=== PATIENT | male | born 1975 | race African-American/Black ===

== ENCOUNTER 2018-03-05 17:10 | Emergency (ER) | payer SELFPAY ==
[2018-03-05 17:24] VITALS: BP 147/90
[2018-03-05] MEDS ORDERED: FLUCONAZOLE 100 MG TABLET PO ONE (18:46)
--- NOTE | 2018-03-05 18:50 | ER Document Report ---
HPI - HPI Time Seen by Provider: 03/05/18 17:59 Pain Level: 5 Notes: Patient is a 42-year-old male who presents with sore throat times 2 months. Patient reports that he has had a history of having a yeast infection in his throat several years ago. He states that this feels similar. Patient denies any recent sick contacts. Denies any nausea, vomiting, diarrhea or fever. Reports that he is able to swallow without difficulty although he has some discomfort. Past Medical History - General Information source: Patient - Social History Smoking Status: Never Smoker Family History: Reviewed & Not Pertinent - Medical History Medical History: Negative Surgical Hx: Negative - Immunizations Immunizations up to date: Yes Vertical Provider Document - CONSTITUTIONAL Notes: PHYSICAL EXAMINATION: GENERAL: Well-appearing, well-nourished and in no acute distress. HEAD: Atraumatic, normocephalic. EYES: Pupils equal round extraocular movements intact, conjunctiva are normal. ENT: Nares patent, throat mildly erythematous but without exudates. White spots noted inside mouth and on tongue. No evidence of peritonsillar abscess. Uvula midline. NECK: Normal range of motion LUNGS: No respiratory distress Musculoskeletal: Normal range of motion NEUROLOGICAL: Normal speech, normal gait. PSYCH: Normal mood, normal affect. SKIN: Warm, Dry, normal turgor, no rashes or lesions noted. Course - Re-evaluation Re-evalutation: Patient will be treated for oral thrush as he states he has had this before. - Vital Signs Vital signs: Temp Pulse Resp BP Pulse Ox 98.5 F 81 16 147/90 H 98 03/05/18 17:23 03/05/18 17:23 03/05/18 17:23 03/05/18 17:23 03/05/18 17:23 Discharge - Discharge Clinical Impression: Oral thrush Condition: Stable Disposition: HOME, SELF-CARE Additional Instructions: Oral Thrush You have thrush. This is a yeast infection of the mucous membranes in the mouth, caused by an organism called jennifer. Typical symptoms are redness, tenderness, and white spots "stuck" on the membranes. Thrush often occurs after treatment with antibiotics, particularly in infants. In adults, the infection is unusual. It usually requires further evaluation for a possible hidden disease such as diabetes or a problem with the immune system. Thrush is treated with antifungal medication. The medicine is rubbed into the cheeks. Several days are required for healing. You should return if you do not improve as expected, or if any new or unusual symptoms develop. Please take the medications as prescribed. Follow-up with your primary care provider. Prescriptions: Fluconazole [Diflucan 100 Mg Tablet] 100 mg PO DAILY 3 Days #3 tablet Nystatin [Mycostatin 500,000 Unit/5 ml Susp Udcup] 500,000 unit PO QID #20 udc
== END 2018-03-05 19:10 | disposition home or self-care (01) ==
LOC: ER 17:10
DX: B37.0 Candidal stomatitis (principal); J02.9 Acute pharyngitis, unspecified
CPT/HCPCS: 87070; 87880; 99283

== ENCOUNTER 2018-03-12 16:44 | Emergency (ER) | payer SELFPAY ==
[2018-03-12 16:49] VITALS: BP 146/91
--- NOTE | 2018-03-12 17:10 | ER Document Report ---
ED ENT - General Chief Complaint: Sore Throat Stated Complaint: SORE THROAT, BLOOD IN URINE Time Seen by Provider: 03/12/18 17:00 Mode of Arrival: Ambulatory Information source: Patient Notes: Chief complaint: Sore throat, dysuria History of complain:( obtained from----patient) 42 years old male presents today with sore throat, he was here a few days ago. Given nystatin for 3 days, the throat was improving and then again come back. And also having dysuria frequency and urgency. No fever chills or other constitutional symptoms as above Onset: As above Duration: As above Severity: Mild to moderate Quality: As above Context: Possible thrush Exacerbating factor and relieving factors: None REVIEW OF SYSTEMS: CONSTITUTIONAL : Denies fever, chills, or sweats. Denies recent illness. EENT: Denies eye, ear, throat, or mouth pain or symptoms. Denies nasal or sinus congestion or discharge. Denies throat, tongue, or mouth swelling or difficulty swallowing. CARDIOVASCULAR: Denies chest pain. Denies palpitations or racing or irregular heart beat. Denies ankle edema. RESPIRATORY: Denies cough, cold, or chest congestion. Denies shortness of breath, difficulty breathing, or wheezing. GASTROINTESTINAL: Denies distention. Denies nausea, vomiting, or diarrhea. Denies blood in vomitus, stools, or per rectum. Denies black, tarry stools. Denies constipation. GENITOURINARY: Denies difficulty urinating, painful urination, burning, frequency, blood in urine, or discharge. FEMALE GENITOURINARY: Denies vaginal bleeding, heavy or abnormal periods, irregular periods. Denies vaginal discharge or odor. MUSCULOSKELETAL: Denies back or neck pain or stiffness. Denies joint pain or swelling. SKIN: Denies rash, lesions or sores. HEMATOLOGIC : Denies easy bruising or bleeding. LYMPHATIC: Denies swollen, enlarged glands. NEUROLOGICAL: Denies confusion or altered mental status. Denies passing out or loss of consciousness. Denies dizziness or lightheadedness. Denies headache. Denies weakness or paralysis or loss of use of either side. Denies problems with gait or speech. Denies sensory loss, numbness, or tingling. Denies seizures. PSYCHIATRIC: Denies anxiety or stress. Denies depression, suicidal ideation, or homicidal ideation. ALL OTHER SYSTEMS REVIEWED AND NEGATIVE. PHYSICAL EXAMINATION: GENERAL: Well-appearing, well-nourished and in no acute distress. HEAD: Atraumatic, normocephalic. EYES: Pupils equal round and reactive to light, extraocular movements intact, conjunctiva are normal. ENT: Nares patent, oropharynx clear without exudates. Moist mucous membranes. NECK: Normal range of motion, supple without lymphadenopathy LUNGS: Breath sounds clear to auscultation bilaterally and equal. No wheezes rales or rhonchi. HEART: Regular rate and rhythm without murmurs ABDOMEN: Soft, nontender, nondistended abdomen. No guarding, no rebound. No masses appreciated. Examination of genitals-deferred Musculoskeletal: Normal range of motion, no pitting or edema. No cyanosis. NEUROLOGICAL: Cranial nerves grossly intact. Normal speech, normal gait. Normal sensory, motor exams PSYCH: Normal mood, normal affect. SKIN: Warm, Dry, normal turgor, no rashes or lesions noted. Dictation was performed using [employer] voice recognition software TRAVEL OUTSIDE OF THE [place] IN LAST 30 DAYS: No - HPI Notes: Dictated - Related Data Allergies/Adverse Reactions: No Known Allergies Allergy (Verified 03/12/18 16:46) Past Medical History - Social History Smoking Status: Never Smoker Frequency of alcohol use: Rare Drug Abuse: None Lives with: Family Family History: Reviewed & Not Pertinent Patient has suicidal ideation: No Patient has homicidal ideation: No Renal/ Medical History: Denies: Hx Peritoneal Dialysis - Immunizations Immunizations up to date: Yes Review of Systems - Review of Systems Notes: Dictated Physical Exam - Vital signs Vitals: Temp Pulse Resp BP Pulse Ox 99.2 F 86 14 146/91 H 99 03/12/18 16:46 03/12/18 16:46 03/12/18 16:46 03/12/18 16:46 03/12/18 16:46 - Notes Notes: Dictated Course - Vital Signs Vital signs: Temp Pulse Resp BP Pulse Ox 99.2 F 86 14 146/91 H 99 03/12/18 16:46 03/12/18 16:46 03/12/18 16:46 03/12/18 16:46 03/12/18 16:46 - Laboratory Laboratory results interpreted by me: 03/12/18 17:04 Urine Protein 100 H Urine Blood SMALL H Urine Urobilinogen 4.0 H Ur Leukocyte Esterase TRACE H Discharge - Discharge Clinical Impression: Thrush, oral, Dysuria Condition: Fair Disposition: HOME, SELF-CARE Instructions: Oral Thrush ([facility]) Prescriptions: Fluconazole [Diflucan] 200 mg PO DAILY #14 tablet Nystatin [Mycostatin 500,000 Unit/5 ml Susp Udcup] 500,000 unit PO QID #120 udc
[2018-03-12 17:26] LABS: APPEARANCE,URINE CLEAR; BILIRUBIN,URINE NEGATIVE (NEGATIVE); COLOR,URINE YELLOW; GLUCOSE, URINE NEGATIVE (NEGATIVE); KETONES,URINE NEGATIVE (NEGATIVE); LEUKOCYTE ESTERASE,URINE TRACE (NEGATIVE); NITRITE,URINE NEGATIVE (NEGATIVE); PROTEIN,URINE 100 mg/dL (NEGATIVE); URINE SPECIFIC GRAVITY 1.014
== END 2018-03-12 18:38 | disposition home or self-care (01) ==
LOC: ER 16:44
DX: B37.0 Candidal stomatitis (principal); R30.0 Dysuria; R31.9 Hematuria, unspecified
CPT/HCPCS: 81001; 99283

== ENCOUNTER 2018-03-13 07:17 | Emergency (ER) | payer SELFPAY ==
[2018-03-13] MEDS ORDERED: NORMAL SALINE 1000 ML 1,000 ML IV ONE (07:51)
[2018-03-13 08:19] LABS: ABSOLUTE LYMPHOCYTES (AUTO) 0.6 10^3/uL (0.5-4.7); ABSOLUTE MONOCYTES (AUTO) 0.7 10^3/uL (0.1-1.4); ABSOLUTE NEUT (AUTO) 2.7 10^3/uL (1.7-8.2); BASOPHILS % (AUTO) 0.5 % (0-2); EOSINOPHILS % (AUTO) 0.3 % (0-6); HEMATOCRIT 38.4 % (37.9-51.0); HEMOGLOBIN 13.3 g/dL (13.5-17.0); MEAN CORPUSCULAR HEMOGLOBIN 32.4 pg (27.0-33.4); MEAN CORPUSCULAR HGB CONC 34.5 g/dL (32.0-36.0); MEAN CORPUSCULAR VOLUME 94 fl (80-97); PLATELET COUNT 209 10^3/uL (150-450); RED BLOOD COUNT 4.09 10^6/uL (4.35-5.55); RED CELL DISTRIBUTION WIDTH 13.7 % (11.5-14.0); SEGMENTED NEUTROPHILS % (AUTO) 67.2 % (42-78); TOTAL CELLS COUNTED % (AUTO) 100 %; WHITE BLOOD COUNT 4.1 10^3/uL (4.0-10.5)
[2018-03-13 08:38] LABS: ALANINE AMINOTRANSFERASE 110 U/L (21-72); ALKALINE PHOSPHATASE 78 U/L (38-126); ANION GAP 10 (5-19); ASPARTATE AMINO TRANSFERASE 132 U/L (17-59); BILIRUBIN,DIRECT 0.4 mg/dL (0.0-0.4); BILIRUBIN,TOTAL 0.7 mg/dL (0.2-1.3); BLOOD UREA NITROGEN 13 mg/dL (7-20); CALCIUM 9.8 mg/dL (8.4-10.2); CARBON DIOXIDE 30 mmol/L (22-30); CHLORIDE 106 mmol/L (98-107); GLUCOSE 99 mg/dL (75-110); POTASSIUM 3.8 mmol/L (3.6-5.0); SODIUM 146.4 mmol/L (137-145); TOTAL PROTEIN 9.2 g/dL (6.3-8.2)
--- NOTE | 2018-03-13 08:39 | ER Document Report ---
ED General - General Chief Complaint: GI Bleeding Stated Complaint: THROAT PAIN,VOMITING Time Seen by Provider: 03/13/18 07:45 Mode of Arrival: Ambulatory Information source: Patient Notes: Vision is a 42-year-old male who presents with chief complaint of vomiting blood. Patient reports this morning he woke up at around 6 AM and began vomiting bright red blood. He denies any blood in his stool. He denies ever having this happen before. Patient is currently being treated for recurrent oral thrush. Patient denies history of any HIV. Patient reports he is otherwise healthy and has no chronic medical conditions. On arrival patient is leaning over spitting up bright red blood. He has approximately 200 cc in the current emesis bag. Patient denies any nausea or pain. TRAVEL OUTSIDE OF THE [place] IN LAST 30 DAYS: No - Related Data Allergies/Adverse Reactions: No Known Allergies Allergy (Verified 03/12/18 16:46) Past Medical History - General Information source: Patient - Social History Smoking Status: Never Smoker Frequency of alcohol use: None Drug Abuse: None Family History: Reviewed & Not Pertinent Patient has suicidal ideation: No Patient has homicidal ideation: No - Medical History Medical History: Negative Renal/ Medical History: Denies: Hx Peritoneal Dialysis Surgical Hx: Negative - Immunizations Immunizations up to date: Yes Review of Systems - Review of Systems Respiratory: Hemoptysis Gastrointestinal: Vomiting, Blood in vomit -: Yes All other systems reviewed and negative Physical Exam - Vital signs Vitals: Temp Pulse Resp BP Pulse Ox 98.5 F 113 H 18 152/95 H 113 H 03/13/18 07:21 03/13/18 07:21 03/13/18 07:21 03/13/18 07:21 03/13/18 07:21 - Notes Notes: PHYSICAL EXAMINATION: GENERAL: Well-appearing, well-nourished and in moderate distress. HEAD: Atraumatic, normocephalic. EYES: Pupils equal round and reactive to light, extraocular movements intact, sclera anicteric, conjunctiva are normal. ENT: Nares patent, red blood noted in the back of the oropharynx, unable to locate its origin. Moist mucous membranes. NECK: Normal range of motion, supple without lymphadenopathy LUNGS: Breath sounds clear to auscultation bilaterally and equal. No wheezes rales or rhonchi. HEART: Regular rate and rhythm without murmurs ABDOMEN: Soft, nontender, nondistended abdomen. No guarding, no rebound. No masses appreciated. Musculoskeletal: Normal range of motion, no pitting or edema. No cyanosis. NEUROLOGICAL: Cranial nerves grossly intact. Normal speech, normal gait. Normal sensory, motor exams PSYCH: Normal mood, normal affect. SKIN: Warm, Dry, normal turgor, no rashes or lesions noted. Course - Re-evaluation Re-evalutation: On initial examination patient is spitting blood into an emesis bag. Since arrival he has had approximately 400 mL's of bright red blood into the emesis bag. Patient is a [employer]ri[employer] and is refusing to consider a blood transfusion. Patient is awake, alert and his vital signs are stable. He was mildly tachycardic on arrival but heart rate has now settled into the 90s. Patient's blood pressure is mildly hypertensive at 139/90. Hemoccult is positive. Initial hemoglobin 13.3 Initial hematocrit 38.4 03/13/18 09:53 Call placed to [facility], unable to accept transfers at this time unless they are ICU level. Call placed to [facility], they have at least a 24 hour bed delay. Call placed to [facility], awaiting call back from [facility]. 03/13/18 10:50 Repeat hemoglobin 11.6 Repeat hematocrit 33.3 Vitals remain stable. Patient continues to spit up blood. Will start Octreotide at this time, re-consulted Dr. Mendez. He advised to Call [facility] again for transfer consideration. 03/13/18 11:04 Called [facility] back due to significant drop in hemoglobin. Spoke with Dr. Hendricks, ICU attending who agrees to accept patient for transfer. Dr. Hendricks advises not to give TXA at this time. 03/13/18 11:19 Patient updated on transfer status. Bed assignment received from [facility]. Pending transportation. 03/13/18 11:36 No [facility] ground transport available until 1930 tonight. Patient will leave via air ALS transport. Patient updated and agreeable to plan of care. It appears that patients bleeding has slowed with administration of medications as patient has less in the emesis bag at this time. 03/13/18 12:05 [facility] at bedside for transport, patient stable for transport. - Vital Signs Vital signs: Temp Pulse Resp BP Pulse Ox 97.9 F 87 18 142/97 H 98 03/13/18 09:05 03/13/18 12:06 03/13/18 12:06 03/13/18 12:06 03/13/18 12:06 - Laboratory Result Diagrams: 03/13/18 10:15 03/13/18 07:58 Laboratory results interpreted by me: 03/13/18 03/13/18 03/13/18 07:58 07:58 08:50 RBC 4.09 L Hgb 13.3 L Hct Monocytes % 17.0 H Sodium 146.4 H AST 132 H ALT 110 H Total Protein 9.2 H Urine Protein 100 H Urine Blood MODERATE H Urine Urobilinogen 2.0 H Ur Leukocyte Esterase SMALL H Chlamydia DNA (PCR) 03/13/18 03/13/18 10:15 10:15 RBC 3.56 L Hgb 11.6 L Hct 33.3 L Monocytes % Sodium AST ALT Total Protein Urine Protein Urine Blood Urine Urobilinogen Ur Leukocyte Esterase Chlamydia DNA (PCR) DETECTED H Critical Care Note - Critical Care Note Total time excluding time spent on procedures (mins): 45 Discharge - Discharge Disposition: [facility]
[2018-03-13 09:09] LABS: APPEARANCE,URINE SLIGHTLY-CLOUDY; BILIRUBIN,URINE NEGATIVE (NEGATIVE); COLOR,URINE YELLOW; GLUCOSE, URINE NEGATIVE (NEGATIVE); KETONES,URINE NEGATIVE (NEGATIVE); LEUKOCYTE ESTERASE,URINE SMALL (NEGATIVE); NITRITE,URINE NEGATIVE (NEGATIVE); PROTEIN,URINE 100 mg/dL (NEGATIVE); URINE SPECIFIC GRAVITY 1.014
[2018-03-13] MEDS ORDERED: PANTOPRAZOLE SODIUM 40 MG VIAL IV ONE (09:17)
[2018-03-13] MEDS ORDERED: PANTOPRAZOLE SODIUM 40 MG VIAL IV PRN (09:18)
[2018-03-13 10:35] LABS: HEMATOCRIT 33.3 % (37.9-51.0); HEMOGLOBIN 11.6 g/dL (13.5-17.0); MEAN CORPUSCULAR HEMOGLOBIN 32.5 pg (27.0-33.4); MEAN CORPUSCULAR HGB CONC 34.7 g/dL (32.0-36.0); MEAN CORPUSCULAR VOLUME 94 fl (80-97); PLATELET COUNT 177 10^3/uL (150-450); RED BLOOD COUNT 3.56 10^6/uL (4.35-5.55); RED CELL DISTRIBUTION WIDTH 13.8 % (11.5-14.0); WHITE BLOOD COUNT 4.8 10^3/uL (4.0-10.5)
[2018-03-13] MEDS ORDERED: NORMAL SALINE 500 ML with OCTREOTIDE ACETATE 500 MCG IV PRN ×2 (10:57)
[2018-03-13] MEDS ORDERED: OCTREOTIDE ACETATE INJ/PF 100 MCG/1 ML SDV IV ONE (10:57)
--- NOTE | 2018-03-13 11:42 | RADIOLOGY REPORT (SQ) ---
EXAM DESCRIPTION: CHEST SINGLE VIEW COMPLETED DATE/TIME: 03/13/2018 11:24 am REASON FOR STUDY: possible upper GI bleed vs hemoptysis COMPARISON: None. EXAM PARAMETERS: NUMBER OF VIEWS: One view. TECHNIQUE: Single frontal radiographic view of the chest acquired. RADIATION DOSE: NA LIMITATIONS: None. FINDINGS: LUNGS AND PLEURA: No opacities, masses or pneumothorax. No pleural effusion. MEDIASTINUM AND HILAR STRUCTURES: No masses. Contour normal. HEART AND VASCULAR STRUCTURES: Heart normal in size. Normal vasculature. BONES: No acute findings. HARDWARE: None in the chest. OTHER: No other significant finding. IMPRESSION: NO ACUTE RADIOGRAPHIC FINDING IN THE CHEST. TECHNICAL DOCUMENTATION: JOB ID: [id number] [employer]- All Rights Reserved Reading location - IP/workstation name: [email or web address]
[2018-03-13 12:07] VITALS: BP 142/97
[2018-03-13 12:07] LABS: CHLAM PCR DETECTED (NOT DETECT); GON PCR NOT DETECTED (NOT DETECT)
== END 2018-03-13 12:10 | disposition short-term general hospital (02) ==
LOC: ER 07:17
DX: K92.0 Hematemesis (principal)
CPT/HCPCS: 99291; 96361; 96375; 96365; 96366; 86900; 86901; 36415; 86850; 85025; 85027; 82272; 80053; 81001; 86701 ×2; 87491; 87591; 86702; 71045; J2354 ×2; S0164; J7030; J7040